=== PATIENT | female | born 2005 | race Caucasian/White ===

== ENCOUNTER 2024-04-25 12:28 | Emergency (ER) | payer SELFPAY ==
[2024-04-25 12:38] VITALS: BP 114/77; PULSE 69; RESP 18; TEMP 98.8; BMI 24.0
[2024-04-25 14:26] LABS: BASO % 0.5 % (0-2.0); HEMATOCRIT 38.3 % (32.4-45.2); HEMOGLOBIN 13.1 GM/dL (10.7-15.3); LYMPH % 24.2 % (8-40); MCH 27.5 pg (25.7-33.7); MCHC 34.2 g/dl (32.0-36.0); MEAN CELL VOLUME 80.4 fl (80-96); MEAN PLT VOLUME 8.4 fl (7.5-11.1); MONO % 6.4 % (3.8-10.2); NEUT % 67.9 % (42.8-82.8); PLATELET COUNT 286 10^3/uL (134-434); RBC 4.76 M/mm3 (3.60-5.2); RDW 14.6 % (11.6-15.6); WHITE BLOOD COUNT 8.2 K/mm3 (4.0-10.0)
[2024-04-25 14:52] LABS: POTASSIUM 4.2 mmol/L (3.5-5.1)
[2024-04-25 14:54] LABS: BLOOD UREA NITROGEN 15.4 mg/dL (7-18)
[2024-04-25 14:57] LABS: CREATININE 0.8 mg/dL (0.55-1.3)
[2024-04-25 14:59] LABS: TOT PROT 7.6 g/dl (6.4-8.2)
== END 2024-04-25 15:34 | disposition home or self-care (01) ==
LOC: JER 12:28
DX: R00.2 Palpitations (principal)
CPT/HCPCS: 36415; 71046-TC-FY; 80053; 84439; 84443; 84484; 84703; 85025; 93005; 93010; 99285-25